=== PATIENT | female | born 1945 | race Caucasian/White ===

== ENCOUNTER → 2019-01-21 | Day surgery (SDC) | payer OTHER, MEDICARE ==
--- NOTE | 2019-01-23 12:24 | PATH ---
Surgical Pathology Report Patient Name: DANNY RAMOS [facility]. Rec. #: [id number] /Age/Gender: 1945 (Age: 73) / F Account: [id number] Location: [facility] Taken: 01/21/2019 Received: 01/21/2019 Reported: 01/23/2019 Physicians: Jennifer Majano M.D. Specimen(s) Received A: LEFT BREAST CORE BIOPSY @ 12:00 1.74 CM. B: LEFT 1:00 0.6 CM LYMPH NODE Clinical History 12 o'clock position 1.7 cm suspicious mass with calcifications Final Diagnosis A. LEFT BREAST, 12:00, 1.7 CM MASS WITH CALCIFICATION, ULTRASOUND GUIDED CORE BIOPSY: INVASIVE DUCTAL CARCINOMA, POORLY DIFFERENTIATED, MEASURING 1 CM IN GREATEST DIMENSION ON THIS SLIDE. DUCTAL CARCINOMA IN SITU (DCIS) PRESENT, HIGH NUCLEAR GRADE, WITH NECROSIS AND ASSOCIATED CALCIFICATIONS. Results of Estrogen Receptor (ER) and Progesterone Receptor (NJ) studies performed on block "A1" at [facility], [place] are as follows: ER (clone [id number] mouse monoclonal antibody by [employer]): <10% nuclear staining with weak intensity (low positive). NJ (clone16 mouse monoclonal antibody by [employer]): 0% nuclear staining (Negative). Positive and negative controls (internal if applicable) show appropriate results. Formalin fixation and cold ischemic times are within current ASCO/CAP recommendations for ER, NJ and Her2 testing. Comment: Immunohistochemical stain performed and interpreted at [facility], [place] shows membranous immunoreactivity with E-Cadherin, supporting a ductal phenotype. Reports for Her 2 and Ki-67 to follow. B. LEFT, 1:00, 0.6CM LYMPH NODE, ULTRASOUND GUIDED CORE BIOPSY: FRAGMENTS OF LYMPH NODE TISSUE WITH ISOLATED TUMOR CELLS (MALIGNANT CELL CLUSTER NO LARGER THAN 0.2 MM). Intradepartmental case reviewed with concordance on diagnosis. This case was discussed with Dr. Munroe and Dr. Lee on January 23, 2019/ Electronically Signed Wilfrido Corea M.D. Addendum Reported: 01/26/2019 Addendum Diagnosis Biomarker Studies Results of Her2 (IHC) & Ki-67 studies performed on this specimen at [place], [place] ([id number]) interpreted at [facility], [place] are as follows: Her2 IHC (EP3 from [employer], formerly known as [id number], using [employer] Polymer Refine detection kit): Negative (0) Ki-67: ~90% (high proliferative index) Wilfrido Corea M.D. Gross Description A. Received in formalin labeled "left breast 12:00," are 3 rick-yellow, cylindrical portions of fibroadipose tissue ranging from 1.1-1.4 cm in length and averaging 0.1 cm in diameter. The specimens are submitted in toto in one cassette. B. received in formalin labeled "left 1:00," are 5 rick-yellow, cylindrical portions of fibroadipose tissue ranging from 0.2-1.0 cm in length and averaging 0.1 cm in diameter. The specimens are submitted in toto in one cassette. Time to formalin fixation: Less than one minute Total formalin fixation time: Approximately 9 hours. 01/21/2019 formerly [facility]01/21/2019
== END | disposition home or self-care (01) ==
LOC: JASU-SURG 07:54
PROVIDERS: ATTEND Internal Medicine
PROC: 0HBU3ZX Excision of Left Breast, Percutaneous Approach, Diagnostic (ICD-10-PCS; principal; 2019-01-21)
DX: C50.912 Malignant neoplasm of unspecified site of left female breast (principal)
CPT/HCPCS: 19083; 19084; 77065-TC; 87899; 88305-TC; 88342-TC; A4648